=== PATIENT | male | born 1930 | race Caucasian/White ===

== ENCOUNTER 2017-01-07 20:48 | Emergency (ER) | payer MEDICARE ==
[~2017-01-07] VITALS: Ht 167.6 cm; Wt 81.6 kg
[2017-01-07 21:00] VITALS: BP 179/93
[2017-01-07 21:07] LABS: BASO # 0.1 x10^3/uL (0.0-0.2); BASO % 1 % (0-3); EOS % 0 % (0-3); HEMATOCRIT 42.7 % (39.0-53.0); HEMOGLOBIN 14.4 g/dL (13.0-17.5); LYMPH # 1.9 x10^3/uL (1.0-4.8); LYMPH % 11 % (24-48); MEAN CORPUSCULAR HEMOGLOBIN 29 pg (25-35); MEAN CORPUSCULAR HGB CONC 34 g/dL (31-37); MEAN CORPUSCULAR VOLUME 86 fL (79-100); MONO % 5 % (0-9); NEUT % 84 % (31-73); PLATELET COUNT 284 x10^3/uL (140-400); RED BLOOD COUNT 4.98 x10^6/uL (4.30-5.70); RED CELL DISTRIBUTION WIDTH 16.5 % (11.5-14.5); WHITE BLOOD COUNT 17.8 x10^3/uL (4.0-11.0)
[2017-01-07 21:15] LABS: CALCIUM 9.6 mg/dL (8.5-10.1); CREATININE 1.3 mg/dL (0.7-1.3); GFR 52.6; POTASSIUM 3.9 mmol/L (3.5-5.1)
[2017-01-07 21:21] LABS: ALBUMIN 3.9 g/dL (3.4-5.0); DIRECT BILIRUBIN 0.2 mg/dL (0.0-0.2); TOTAL BILIRUBIN 0.9 mg/dL (0.2-1.0)
--- NOTE | 2017-01-07 21:32 | PHYS DOC ---
Past Medical History Past Medical History: High Cholesterol, Hypertension Past Surgical History: Other Additional Past Surgical Histo: Colonoscopy, Esophageal Dilatation, L RETINA Alcohol Use: Occasionally Drug Use: None Adult General Chief Complaint Chief Complaint: WEAKNESS/GENERALIZED HPI HPI 86-year-old gentleman presenting to the emergency department today feeling generally weak. He reports recently having retinal surgery at [facility]. His family is here with him today and reports having decreased oral intake. He denies any other symptoms at this time. Onset 2-3 days. Location generalized. Duration intermittent. No alleviating factors. No exacerbating factors. No specific timing. Review of systems is negative for chest pain nausea vomiting diaphoresis shortness of breath abdominal pain fevers chills. All other review of systems is negative unless otherwise noted in history of present illness. Review of Systems Review of Systems SEE ABOVE. Current Medications Current Medications Current Medications Medications (Trade) Dose Ordered Sig/Jannie Start Time Stop Time Status Last Admin Dose Admin Sodium Chloride (Iv Sodium Chloride 0.9% 500ml Bag) 500 ml @ 500 mls/hr 1X ONCE 01/07/17 21:45 01/07/17 22:44 DC 01/07/17 21:54 500 MLS/HR Allergies Allergies Allergies Coded Allergies Type Severity Reaction Last Updated Verified No Known Drug Allergies 07/10/15 No Physical Exam Physical Exam Constitutional: Well developed, well nourished, no acute distress, non-toxic appearance. HENT: Normocephalic, atraumatic, bilateral external ears normal, oropharynx moist, no oral exudates, nose normal. [] Eyes: PERRLA, EOMI, conjunctiva normal, no discharge. [] Neck: Normal range of motion, no tenderness, supple, no stridor. Cardiovascular:Heart rate regular rhythm, no murmur [] Lungs & Thorax: Bilateral breath sounds clear to auscultation [] Abdomen: Bowel sounds normal, soft, no tenderness, no masses, no pulsatile masses. Skin: Warm, dry, no erythema, no rash. [] Back: No tenderness, no CVA tenderness. [] Extremities: No tenderness, no cyanosis, no clubbing, ROM intact, no edema. Neurologic: Alert and oriented X 3, normal motor function, normal sensory function, no focal deficits noted. Psychologic: Affect normal, judgement normal, mood normal. [] Current Patient Data Vital Signs Vital Signs Date Time Temp Pulse Resp B/P Pulse Ox O2 Delivery O2 Flow Rate FiO2 01/07/17 21:00 98.4 77 16 179/93 97 Room Air 98.4 Lab Values Laboratory Tests Test 01/07/17 20:56 01/07/17 21:38 01/07/17 22:50 White Blood Count 17.8x10^3/uL (4.0-11.0) H Red Blood Count 4.98x10^6/uL (4.30-5.70) Hemoglobin 14.4g/dL (13.0-17.5) Hematocrit 42.7% (39.0-53.0) Mean Corpuscular Volume 86fL (79-100) Mean Corpuscular Hemoglobin 29pg (25-35) Mean Corpuscular Hemoglobin Concent 34g/dL (31-37) Red Cell Distribution Width 16.5% (11.5-14.5) H Platelet Count 284x10^3/uL (140-400) Neutrophils (%) (Auto) 84% (31-73) H Lymphocytes (%) (Auto) 11% (24-48) L Monocytes (%) (Auto) 5% (0-9) Eosinophils (%) (Auto) 0% (0-3) Basophils (%) (Auto) 1% (0-3) Neutrophils # (Auto) 14.9x10^3uL (1.8-7.7) H Lymphocytes # (Auto) 1.9x10^3/uL (1.0-4.8) Monocytes # (Auto) 0.8x10^3/uL (0.0-1.1) Eosinophils # (Auto) 0.0x10^3/uL (0.0-0.7) Basophils # (Auto) 0.1x10^3/uL (0.0-0.2) Sodium Level 134mmol/L (136-145) L Potassium Level 3.9mmol/L (3.5-5.1) Chloride Level 97mmol/L (98-107) L Carbon Dioxide Level 27mmol/L (21-32) Anion Gap 10 (6-14) Blood Urea Nitrogen 23mg/dL (8-26) Creatinine 1.3mg/dL (0.7-1.3) Estimated GFR (Cockcroft-Gault) 52.6 Glucose Level 139mg/dL (70-99) H Calcium Level 9.6mg/dL (8.5-10.1) Total Bilirubin 0.9mg/dL (0.2-1.0) Direct Bilirubin 0.2mg/dL (0.0-0.2) Aspartate Amino Transferase (AST) 15U/L (15-37) Alanine Aminotransferase (ALT) 18U/L (16-63) Alkaline Phosphatase 77U/L (46-116) Troponin I Quantitative < 0.017ng/mL (0.000-0.055) MI-Erd-J-Type Natriuretic Peptide 945pg/mL (0-449) H Total Protein 8.0g/dL (6.4-8.2) Albumin 3.9g/dL (3.4-5.0) Lipase 194U/L (73-393) Lactic Acid Level 1.7mmol/L (0.4-2.0) Urine Collection Type Unknown Urine Color Yellow Urine Clarity Clear Urine pH 6.5 Urine Specific [place] 1.020 Urine Protein 100mg/dL (NEG-TRACE) Urine Glucose (UA) Negativemg/dL (NEG) Urine Ketones (Stick) 15mg/dL (NEG) Urine Blood Large (NEG) Urine Nitrite Negative (NEG) Urine Bilirubin Negative (NEG) Urine Urobilinogen Dipstick 0.2mg/dL (0.2 mg/dL) Urine Leukocyte Esterase Negative (NEG) Urine RBC 20-40/HPF (0-2) Urine WBC 0/HPF (0-4) Urine Bacteria 0/HPF (0-FEW) Laboratory Tests 01/07/17 20:56 Laboratory Tests 01/07/17 20:56 EKG EKG EKG shows A. fib with a regular rate. ST segments congruent. [] Radiology/Procedures Radiology/Procedures []Chest x-ray reviewed by myself shows no obvious infiltrate or pneumothorax present. No obvious acute cardiopulmonary process present. Course & Med Decision Making Course & Med Decision Making Pertinent Labs and Imaging studies reviewed. (See chart for details) [] 86-year-old presenting to the emergency department today after feeling generally weak. Vital signs showed afebrile normal heart rate. Mild hypertension present. Pertinent physical exam shows a normal physical exam. CBC obtained which showed leukocytosis could be post operative. pts denies use of steroids. Patient denies any cough polyuria dysuria or clinical symptomatology of pneumonia or urinary tract infection. Chest x-ray shows no infiltrate. Urine negative for infection.. Chemistry panel otherwise unremarkable. Troponin negative. The patient was given 500 mL of saline in the emergency department. On reexamination the patient was feeling much better. He was in discharged home to follow-up with his PCP over the next 2-3 days. [id number] discharge instructions given along with return precautions. Patient and family are comfortable with plan. I did offer the patient admission to the hospital for further monitoring which he and his family respectfully declined. Dragon Disclaimer Dragon Disclaimer This electronic medical record was generated, in whole or in part, using a voice recognition dictation system. Departure Departure Impression: Primary Impression: Generalized weakness Disposition: 01 HOME, SELF-CARE Condition: STABLE Referrals: SHONNA LAIRD MD (PCP) Patient Instructions: Weakness Additional Instructions: Thank you for allowing us to participate in your care today. Followup with your primary care physician in 3 days if your symptoms do not improve. If you do not have a primary care provider you can ask for a list of our primary care providers. Return to the emergency department you have any new or concerning findings. This should be evaluated by the primary care physician and any necessary consulting services for continued management within a few days after discharge. Return to emergency room if you have any new or concerning symptoms including but not limited to fever, chills, nausea, vomiting, intractable pain, any new rashes, chest pain, shortness of air, uncontrolled bleeding, difficulty breathing, and/or vision loss. MARY STERN MD Jan 07, 2017 21:32
[2017-01-07] MEDS ORDERED: AMLO10TA2 PO (21:43)
[2017-01-07] MEDS ORDERED: ALLO300T PO (21:43)
[2017-01-07] MEDS ORDERED: POTA20TA4 PO (21:43)
[2017-01-07] MEDS ORDERED: PRAV10TA2 PO (21:43)
[2017-01-07] MEDS ORDERED: METO100T2 PO (21:43)
[2017-01-07] MEDS ORDERED: HYDR25TA9 PO (21:43)
[2017-01-07] MEDS ORDERED: IV NORMAL SALINE 500ML BAG 500 ML IV ONE (21:45)
[2017-01-07 22:55] LABS: BILIRUBIN,URINE NEGATIVE (NEG); GLUCOSE,URINE NEGATIVE (NEG); NITRITE,URINE NEGATIVE (NEG); PH,URINE 6.5; PROTEIN,URINE 100 mg/dL (NEG-TRACE); UROBILINOGEN,URINE 0.2 mg/dL (0.2 mg/dL)
[2017-01-07 23:01] LABS: BACTERIA,URINE 0 /HPF (0-FEW); RBC,URINE 20-40 /HPF (0-2); WBC,URINE 0 /HPF (0-4)
--- NOTE | 2017-01-08 08:42 | RAD ---
Portable AP upright view CXR: Clinical indications: Weakness. Comparison: February 08, 2012 Findings: No acute lung infiltrate or pleural effusion or pulmonary edema or lung mass or pneumothorax is seen. The heart size, pulmonary vasculature, mediastinum and both ednilson are unremarkable. Fracture of the lateral aspect of the left seventh rib is seen. 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 IMPRESSION: No acute finding. Left rib fractures.
--- NOTE | 2017-01-08 12:33 | EKG ---
[facility] [address] [place] [address] Test Date: 2017-01-07 Test Time: 21:06:18 Pat Name: ELO BEST Department: Room: Gender: M Certified Midwife: : 1930 Requested By: MARY STERN Order Number: [id number] Reading MD: Measurements Intervals [place] Rate: 79 P: OR: QRS: -12 QRSD: 86 T: -14 QT: 390 QTc: 448 Interpretive Statements SINUS RHYTHM LEFTWARD AXIS QRS(T) CONTOUR ABNORMALITY CONSIDER ANTEROLATERAL MYOCARDIAL DAMAGE CONSISTENT WITH INFERIOR INFARCT AGE UNDETERMINED ABNORMAL ECG RI6.01 No previous ECG available for comparison
== END 2017-01-07 23:41 | disposition home or self-care (01) ==
LOC: ER 20:48
DX: R53.1 Weakness (principal); I10 Essential (primary) hypertension; E78.00 Pure hypercholesterolemia, unspecified; Z98.890 Other specified postprocedural states
CPT/HCPCS: 36415; 51702; 71010; 80048; 80076; 81001; 83605; 83690; 83880; 84484; 85027; 93005; 96360; 99285; J7040

== ENCOUNTER 2018-01-09 15:37 | Emergency (ER) | payer MEDICARE ==
[2018-01-09 18:08] LABS: ADD MAN DIFF? NO
[2018-01-09 18:10] LABS: BASO # 0.1 x10^3/uL (0.0-0.2); BASO % 1 % (0-3); EOS # 0.3 x10^3/uL (0.0-0.7); EOS % 2 % (0-3); HEMATOCRIT 39.3 % (39.0-53.0); HEMOGLOBIN 13.4 g/dL (13.0-17.5); LYMPH # 2.8 x10^3/uL (1.0-4.8); LYMPH % 20 % (24-48); MEAN CORPUSCULAR HEMOGLOBIN 30 pg (25-35); MEAN CORPUSCULAR HGB CONC 34 g/dL (31-37); MEAN CORPUSCULAR VOLUME 87 fL (79-100); MONO # 0.9 x10^3/uL (0.0-1.1); MONO % 6 % (0-9); NEUT # 9.8 x10^3uL (1.8-7.7); NEUT % 71 % (31-73); PLATELET COUNT 223 x10^3/uL (140-400); RED BLOOD COUNT 4.51 x10^6/uL (4.30-5.70); RED CELL DISTRIBUTION WIDTH 17.2 % (11.5-14.5); WHITE BLOOD COUNT 13.9 x10^3/uL (4.0-11.0)
[2018-01-09 18:19] LABS: ANION GAP 12 (6-14); BLOOD UREA NITROGEN 27 mg/dL (8-26); CALCIUM 9.3 mg/dL (8.5-10.1); CARBON DIOXIDE 26 mmol/L (21-32); CHLORIDE 103 mmol/L (98-107); CREATININE 1.6 mg/dL (0.7-1.3); GFR 41.3; GLUCOSE 108 mg/dL (70-99); POTASSIUM 4.5 mmol/L (3.5-5.1); SODIUM 141 mmol/L (136-145)
[2018-01-09 18:25] LABS: ALBUMIN 4.1 g/dL (3.4-5.0); ALK PHOS 86 U/L (46-116); ALT (SGPT) 25 U/L (16-63); AST (SGOT) 26 U/L (15-37); DIRECT BILIRUBIN 0.1 mg/dL (0.0-0.2); LIPASE 126 U/L (73-393); TOTAL BILIRUBIN 0.7 mg/dL (0.2-1.0); TOTAL PROTEIN 7.8 g/dL (6.4-8.2)
[2018-01-09 18:27] LABS: TROPONINI < 0.017 ng/mL (0.000-0.055)
[2018-01-09 18:30] LABS: NT-PRO BNP 118 pg/mL (0-449)
[2018-01-09] MEDS: IV NORMAL SALINE 1000ML BAG 1,000 ML IV (18:47)
== END 2018-01-09 20:32 | disposition home or self-care (01) ==
LOC: ER 15:37
DX: K22.2 Esophageal obstruction (principal); T18.128A Food in esophagus causing other injury, initial encounter; I10 Essential (primary) hypertension; E78.00 Pure hypercholesterolemia, unspecified; Z98.890 Other specified postprocedural states; Z87.891 Personal history of nicotine dependence; X58.XXXA Exposure to other specified factors, initial encounter; Y93.89 Activity, other specified; Y99.8 Other external cause status; Y92.89 Other specified places as the place of occurrence of the external cause
CPT/HCPCS: 36415; 80048; 80076; 83690; 83880; 84484; 85025; 93005; 96360; 99285-25; J7030

== ENCOUNTER 2018-03-08 19:45 | Emergency (ER) | payer MEDICARE ==
[2018-03-08] MEDS: GLUCAGON,HUMAN RECOMBINANT 1 MG/ML VIAL. IV (20:36)
[2018-03-08] MEDS ORDERED: fentaNYL PF VIAL 100 MCG/2 ML VIAL (21:27)
[2018-03-08] MEDS ORDERED: MIDAZOLAM HCL/PF 5 MG/5 ML VIAL. (21:27)
[2018-03-08] MEDS ORDERED: IV RINGERS,LACTATED 1000ML 1,000 ML IV (21:30)
[2018-03-08] MEDS: MIDAZOLAM HCL/PF 5 MG/5 ML VIAL. IV ×3 (21:33→21:38)
[2018-03-08] MEDS: fentaNYL PF VIAL 100 MCG/2 ML VIAL IV ×2 (21:33→21:35)
== END 2018-03-08 21:10 | disposition home or self-care (01) ==
LOC: ER 19:45
DX: T18.128A Food in esophagus causing other injury, initial encounter (principal); K22.2 Esophageal obstruction; I10 Essential (primary) hypertension; E78.00 Pure hypercholesterolemia, unspecified; E78.5 Hyperlipidemia, unspecified; F10.20 Alcohol dependence, uncomplicated; X58.XXXA Exposure to other specified factors, initial encounter; Y93.89 Activity, other specified; Y99.8 Other external cause status; Y92.89 Other specified places as the place of occurrence of the external cause
CPT/HCPCS: 43247; 96374; 99285-25; J1610; J2250; J3010

== ENCOUNTER → 2018-03-30 | Day surgery (SDC) | payer MEDICARE ==
[~2018-03-30] MED LIST: LIDOCAINE 2% PF Vial for OR 5 ML VIAL.; PROPOFOL 20 ML IV
[2018-03-30] MEDS: IV RINGERS,LACTATED 1000ML 1,000 ML IV (09:54)
== END | disposition home or self-care (01) ==
LOC: ENDOS 09:19
DX: K22.2 Esophageal obstruction (principal); K22.70 Barrett's esophagus without dysplasia; K44.9 Diaphragmatic hernia without obstruction or gangrene; K29.50 Unspecified chronic gastritis without bleeding; I10 Essential (primary) hypertension; M10.9 Gout, unspecified; Z79.899 Other long term (current) drug therapy; Z98.890 Other specified postprocedural states; E78.00 Pure hypercholesterolemia, unspecified
CPT/HCPCS: 43239; 88305; J2001; J2704

== ENCOUNTER 2021-01-29 20:13 | Emergency (ER) | payer MEDICARE ==
[~2021-01-29] VITALS: Ht 170.2 cm; Wt 80.3 kg
[~2021-01-29 20:13] MED LIST changes: +ALLO300T PO; +AMLO-187 PO; +HYDR-2145 PO; -LIDOCAINE 2% PF Vial for OR 5 ML VIAL.; +METO100T7 PO; +POTA20TA4 PO; +PRAV10TA2 PO; -PROPOFOL 20 ML IV
[2021-01-29] MEDS: LABETALOL 20 MG/4 ML DISP.SYRIN. IVP ONE (21:00)
[2021-01-29 21:03] LABS: BASO # 0.1 x10^3/uL (0.0-0.2); BASO % 1 % (0-3); EOS # 0.3 x10^3/uL (0.0-0.7); EOS % 3 % (0-3); HEMATOCRIT 39.5 % (39.0-53.0); HEMOGLOBIN 13.6 g/dL (13.0-17.5); LYMPH % 26 % (24-48); MEAN CORPUSCULAR HEMOGLOBIN 30 pg (25-35); MEAN CORPUSCULAR HGB CONC 34 g/dL (31-37); MEAN CORPUSCULAR VOLUME 87 fL (79-100); MONO # 0.5 x10^3/uL (0.0-1.1); MONO % 5 % (0-9); NEUT # 7.4 x10^3/uL (1.8-7.7); NEUT % 65 % (31-73); PLATELET COUNT 238 x10^3/uL (140-400); RED BLOOD COUNT 4.52 x10^6/uL (4.30-5.70); RED CELL DISTRIBUTION WIDTH 16.3 % (11.5-14.5); WHITE BLOOD COUNT 11.3 x10^3/uL (4.0-11.0)
--- NOTE | 2021-01-29 21:08 | ED.ADGEN ---
Past Medical History Past Medical History: High Cholesterol, Hypertension, Other Additional Past Medical Histor: GOUT Past Surgical History: No Surgical History Additional Past Surgical Histo: Colonoscopy, Esophageal Dilatation, L RETINA Smoking Status: Never Smoker Alcohol Use: Heavy Drug Use: None General Adult EDM: Chief Complaint: ALTERED MENTAL STATUS HPI: HPI: Patient is an 89-year-old male with past medical history of hypertension who presents to the emergency room with altered mental status. According to the patient's daughter, patient has been having confusion for an unknown amount of time. He previously had been living with his who about a week ago. She thinks that he has had some confusion for quite some time but that their mother had been hiding it from them. He does seem to have increased confusion over this last week. He has had multiple falls since this started. They also noticed that his pupils are unequal. Patient denies any kind of pain. Denies chest pain, shortness of breath, weakness, numbness, visual changes, eye pain. He has not had any known fevers. As far as they know he has been taking his med ications. He has been staying with his family since his . Review of Systems: Review of Systems: Complete ROS is negative unless otherwise documented in HPI Current Medications: Current Medications Medications (Trade) Dose Ordered Sig/Jannie Start Time Stop Time Status Last Admin Dose Admin Labetalol HCl (Normodyne Iv Push) 20 mg 1X ONCE 01/29/21 21:00 01/29/21 21:01 DC Sodium Chloride 1,000 ml @ 1,000 mls/hr 1X ONCE 01/29/21 21:00 01/29/21 21:59 DC 01/29/21 21:27 1,000 MLS/HR Allergies: Allergies: Allergies Coded Allergies Type Severity Reaction Last Updated Verified No Known Drug Allergies 03/30/18 No Physical Exam: PE: General: Awake, alert, NAD. Well Nourished, well hydrated. Cooperative HEENT: Atraumatic, EOMI, right pupil round and reactive, left pupil sluggish to react, unequal pupils, airway patent, moist oral mucosa Neck: Supple, trachea midline Respiratory: CTA bilaterally, normal effort, no wheezing/crackles CV: Tachycardia, no murmur, cap refill <2 GI: Soft, nondistended, nontender, no masses MSK: No obvious deformities Skin: Warm, dry, intact Neuro: A&O x2, speech NL, sensory and motor grossly intact, no focal deficits Psych: Normal affect, normal mood, not suicidal or homicidal Current Patient Data: Labs: Laboratory Tests Test 01/29/21 20:30 01/29/21 21:07 White Blood Count 11.3 x10^3/uL (4.0-11.0) H Red Blood Count 4.52 x10^6/uL (4.30-5.70) Hemoglobin 13.6 g/dL (13.0-17.5) Hematocrit 39.5 % (39.0-53.0) Mean Corpuscular Volume 87 fL (79-100) Mean Corpuscular Hemoglobin 30 pg (25-35) Mean Corpuscular Hemoglobin Concent 34 g/dL (31-37) Red Cell Distribution Width 16.3 % (11.5-14.5) H Platelet Count 238 x10^3/uL (140-400) Neutrophils (%) (Auto) 65 % (31-73) Lymphocytes (%) (Auto) 26 % (24-48) Monocytes (%) (Auto) 5 % (0-9) Eosinophils (%) (Auto) 3 % (0-3) Basophils (%) (Auto) 1 % (0-3) Neutrophils # (Auto) 7.4 x10^3/uL (1.8-7.7) Lymphocytes # (Auto) 3.0 x10^3/uL (1.0-4.8) Monocytes # (Auto) 0.5 x10^3/uL (0.0-1.1) Eosinophils # (Auto) 0.3 x10^3/uL (0.0-0.7) Basophils # (Auto) 0.1 x10^3/uL (0.0-0.2) Sodium Level 141 mmol/L (136-145) Potassium Level 3.3 mmol/L (3.5-5.1) L Chloride Level 103 mmol/L (98-107) Carbon Dioxide Level 24 mmol/L (21-32) Anion Gap 14 (6-14) Blood Urea Nitrogen 20 mg/dL (8-26) Creatinine 1.4 mg/dL (0.7-1.3) H Estimated GFR (Cockcroft-Gault) 47.8 BUN/Creatinine Ratio 14 (6-20) Glucose Level 153 mg/dL (70-99) H Calcium Level 8.7 mg/dL (8.5-10.1) Total Bilirubin 0.6 mg/dL (0.2-1.0) Aspartate Amino Transferase (AST) 22 U/L (15-37) Alanine Aminotransferase (ALT) 27 U/L (16-63) Alkaline Phosphatase 118 U/L (46-116) H Ammonia 18 mcmol/L (11-34) Troponin I Quantitative < 0.017 ng/mL (0.000-0.055) Total Protein 7.3 g/dL (6.4-8.2) Albumin 4.1 g/dL (3.4-5.0) Albumin/Globulin Ratio 1.3 (1.0-1.7) Ethyl Alcohol Level 24 mg/dL (0-10) H Urine Collection Type U cath Urine Color Yellow Urine Clarity Clear Urine pH 5.5 (<5.0-8.0) Urine Specific [place] 1.010 (1.000-1.030) Urine Protein 30 mg/dL (NEG-TRACE) Urine Glucose (UA) Negative mg/dL (NEG) Urine Ketones (Stick) Negative mg/dL (NEG) Urine Blood Negative (NEG) Urine Nitrite Negative (NEG) Urine Bilirubin Negative (NEG) Urine Urobilinogen Dipstick 0.2 mg/dL (0.2 mg/dL) Urine Leukocyte Esterase Negative (NEG) Urine RBC 0 /HPF (0-2) Urine WBC 20-40 /HPF (0-4) Urine Squamous Epithelial Cells Few /LPF Urine Amorphous Sediment Present /HPF Urine Bacteria Mod /HPF (0-FEW) Laboratory Tests 01/29/21 20:30 Laboratory Tests 01/29/21 20:30 Vital Signs: Vital Signs Date Time Temp Pulse Resp B/P (MAP) Pulse Ox O2 Delivery O2 Flow Rate FiO2 01/29/21 22:49 114 18 159/70 (99) 98 Room Air 01/29/21 20:15 97.9 97.9 EKG: EKG: [] Heart Score: C/O Chest Pain: N/A Risk Factors: Risk Factors: DM, Current or recent (<one month) smoker, HTN, HLP, family history of CAD, obesity. Risk Scores: Score 0 - 3: 2.5% MACE over next 6 weeks - Discharge Home Score 4 - 6: 20.3% MACE over next 6 weeks - Admit for Clinical Observation Score 7 - 10: 72.7% MACE over next 6 weeks - Early Invasive Strategies Radiology/Procedures: Radiology/Procedures: [] Course & Med Decision Making: Course & Med Decision Making Pertinent Labs and Imaging studies reviewed. (See chart for details) Patient is an 89-year-old male who presents to the emergency room with altered mental status and confusion. It is possible that this is due to dementia, however given that the patient has not been evaluated for this previously we will do an altered mental status work-up. Patient is significantly hypertensive and he is tachycardic. He has no complaints at this time. He has no visual loss in his left eye despite his pupil being unequal and sluggish to react. He denies any pain that I would that would be suggestive of acute closure glaucoma. Is unclear at this time when the pupil change started. Patient does not have any other neurologic deficits on exam. Cranial nerves are intact. CT is n egative. Lab work is unremarkable. I have discussed the case with Dr. Leonardo his primary care physician. We discussed patient's tachycardia, confusion, unequal pupils. Dr. Leonardo feels that this is patient's baseline. There is no acute findings to suggest otherwise. Patient has not been sleeping very well and has been drinking some since his a week ago. This accounts for patient's falls and increased confusion. It is likely patient would have worsening confusion and delirium if placed in the hospital. At this time I discussed with his family going home to follow-up with his primary care physician later this week. We discussed worsening symptoms that would require him to come back to the emergency room for admission. Patient's test results and vitals while in the ED were fully reviewed and discussed with the patient. Patient is stable and at this time does not need admission to the hospital. We have discussed strict return precautions and the importance of following up with their Primary Care Physician. Patient stated understanding and was given an opportunity to ask any questions. Patient is in agreement with plan. Abhinav Disclaimer: Abhinav Disclaimer: This electronic medical record was generated, in whole or in part, using a voice recognition dictation system. Departure Departure Impression: Primary Impression: Anisocoria Additional Impression: Confusion Disposition: HOME / SELF CARE / HOMELESS Condition: STABLE Referrals: SHONNA LEONARDO MD (PCP) Patient Instructions: Confusion Problem Qualifiers JUSTIN BURNS MD Jan 29, 2021 21:08
[2021-01-29 21:12] LABS: CALCIUM 8.7 mg/dL (8.5-10.1); CREATININE 1.4 mg/dL (0.7-1.3); GFR 47.8; POTASSIUM 3.3 mmol/L (3.5-5.1)
[2021-01-29 21:20] LABS: BILIRUBIN,URINE NEGATIVE (NEG); CLARITY,URINE CLEAR; COLOR,URINE YELLOW; NITRITE,URINE NEGATIVE (NEG); PH,URINE 5.5 (<5.0-8.0); PROTEIN,URINE 30 mg/dL (NEG-TRACE); UROBILINOGEN,URINE 0.2 mg/dL (0.2 mg/dL)
[2021-01-29 21:21] LABS: ALBUMIN 4.1 g/dL (3.4-5.0); ALBUMIN/GLOBULIN RATIO 1.3 (1.0-1.7); TOTAL BILIRUBIN 0.6 mg/dL (0.2-1.0); TOTAL PROTEIN 7.3 g/dL (6.4-8.2)
[2021-01-29 21:26] LABS: AMORPHOUS SEDIMENT,UR PRESENT /HPF; BACTERIA,URINE MOD /HPF (0-FEW)
[2021-01-29] MEDS: IV NORMAL SALINE 1000ML BAG 1,000 ML IV ONE (21:27)
[2021-01-29 21:28] LABS: RBC,URINE 0 /HPF (0-2); WBC,URINE 20-40 /HPF (0-4)
--- NOTE | 2021-01-29 21:39 | RAD ---
Exam: CT head INDICATION: Confusion TECHNIQUE: Sequential axial images through the head were obtained without the administration of IV co ntrast. Exposure: One or more of the following in the visualized dose reduction techniques were utilized for this examination: 1. Automated exposure control 2. Adjustment of the MA and/or KV according to patient size 3. Use of iterative of reconstructive technique Comparisons: None FINDINGS: No focal parenchymal lesion or hemorrhage is identified. There is no midline shift or sulcal effaceme nt. Mild patchy evidence in the periventricular white matter. No acute vascular territory infarction is i dentified. Porter-white distinction is preserved. The ventricular system is within normal limits without compression hydrocephalus. The basal cisterns are well maintained. The visualized portions of the paranasal sinuses and mastoid air cells are well-pneumatized. No acute fractures. IMPRESSION: Mild small vessel ischemic change, technically age indeterminate without recent prior imaging. Electronically signed by: Ho Dietz MD (01/29/2021 9:36 PM) [facility]
[2021-01-29 22:49] VITALS: BP 159/70
== END 2021-01-29 22:58 | disposition home or self-care (01) ==
LOC: ER 20:13
DX: H57.02 Anisocoria (principal); R41.0 Disorientation, unspecified; E78.00 Pure hypercholesterolemia, unspecified; I10 Essential (primary) hypertension; M10.9 Gout, unspecified; F10.20 Alcohol dependence, uncomplicated; Y90.1 Blood alcohol level of 20-39 mg/100 ml
CPT/HCPCS: 36415; 70450; 80053; 81001; 82140; 84484; 85025; 96360; 99285; G0480; J7030; P9612